=== PATIENT | female | born 1950 | race Caucasian/White ===

== ENCOUNTER → 2016-11-18 | Outpatient (CLI) | payer OTHER | LOC: FIMAGING 09:24 | PROVIDERS: ATTEND Internal Medicine | DX: Z12.31 Encounter for screening mammogram for malignant neoplasm of breast (principal) | CPT/HCPCS: G0202 ==

== ENCOUNTER → 2016-12-10 | Outpatient (CLI) | payer OTHER | LOC: FIMAGING 10:06 | PROVIDERS: ATTEND Internal Medicine | DX: R13.10 Dysphagia, unspecified (principal); R53.83 Other fatigue; R63.4 Abnormal weight loss; R05 Cough ==

== ENCOUNTER 2017-11-22 13:04 | Observation (INO) | payer OTHER ==
[2017-11-22] MEDS ORDERED: NS 500 ML IV ONE (13:47)
[2017-11-22 13:56] LABS: PLATELET COUNT 222 10^3/uL (150-400)
[2017-11-22 14:04] LABS: INR 1.04 (0.83-1.16); PROTIME(PATIENT) 13.8 SEC (12.0-15.0)
[2017-11-22] MEDS ORDERED: ONDANSETRON DISINTEGRATING 4 MG TAB PO PRN (14:41)
[2017-11-22] MEDS ORDERED: IBUPROFEN 200 MG TAB PO PRN (14:41)
[2017-11-22] MEDS ORDERED: ONDANSETRON 4 MG/2 ML VIAL IVP PRN (14:41)
[2017-11-22] MEDS ORDERED: ACETAMINOPHEN 325 MG TAB PO PRN (14:41)
--- NOTE | 2017-11-22 15:06 | PDGENHP ---
History and Physical - Chief Complaint Acute lymphangitic streaking - History of Present Illness Primary care provider: Dr. Gale Lambert Primary general surgeon: Dr. Reese Carvalho HPI: 67-year-old female presents with acute lymphangitic streaking characterized as clearly delineated erythema extending from the right elbow into the right axilla with associated soft tissue edema, mild induration over the dorsal aspect of her right elbow with associated pruritus and warmth, no tenderness. The onset of symptoms was on the morning of presentation, preceded by what appeared to be 2 insect bites located over the dorsal aspect of the right elbow occurring on the day prior. The patient did not identify the bugs which bit her. She reports that approximately 6 weeks ago she believes that she was bit by black spider on her left upper extremity, which also resulted in a shorter segment of lymphangitic streaking. She started Keflex at that time, and the lymphangitic streaking was alleviated. She did not actually see the spider which bit her, but she believes that she has seen black widows in her locale. She otherwise denies any fevers chills or night sweats. She also has 2 well-circumscribed areas of erythematous induration located on the posterior lower extremities. History Information - Allergies/Home Medication List Allergies/Adverse Reactions: fentanyl Allergy (Severe, Verified 11/22/17 13:07) Other-Enter Comments Iodinated Contrast- Oral and IV Dye [IV Dye, Iodine Containing Contrast ] Allergy (Severe, Verified 11/22/17 13:07) Anaphylaxis iodine [Iodine] Allergy (Severe, Verified 11/22/17 13:07) Hives zinc [Zinc] Allergy (Intermediate, Verified 11/22/17 13:07) Flushing Creams Allergy (Uncoded 11/22/17 14:44) Home Medications: Calcium Carbonate [Oyster Shell Calcium 500 mg (OTC)] 500 mg PO DAILY 10/08/12 [ Last Taken 11/22/17] Ferrous Sulfate [Ferrous Sulf 325 MG (*)] 325 mg PO DAILY 11/22/17 [Last Taken 11/22/17] Multivitamins [Multivitamin (*)] 1 each PO DAILY 11/22/17 [Last Taken 11/22/17] Primidone [Mysoline 50mg (RX)] 25 mg PO DAILY 11/22/17 [Last Taken 11/22/17] Primidone [Mysoline 50mg (RX)] 50 mg PO HS 11/22/17 [Last Taken 11/21/17] I have personally reviewed and updated: family history, medical history, social history, surgical history - Past Medical History Additional medical history: Melanoma. Recurrent UTIs. Possible migraines. Closed head injury. Frequent, pervasive bug bites - Surgical History Additional surgical history: Hysterectomy. Appendectomy 2013. 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 [employer] Review of Systems Review of Systems: ROS: 10pt was reviewed & negative except for what was stated in HPI & below Skin: Reports: other (Erythema, swelling) Hematologic/Lymphatic: Reports: other (Lymphangitic streaking right upper extremity) Physical Exam Physical Exam: Temp Pulse Resp BP Pulse Ox 36.7 C 55 L 18 130/72 H 97 11/22/17 14:23 11/22/17 14:34 11/22/17 14:34 11/22/17 14:34 11/22/17 14:34 Constitutional: no apparent distress, appears nourished, not in pain Eyes: PERRL, anicteric sclera, EOMI Ears, Nose, Mouth, Throat: moist mucous membranes, hearing normal, ears appear normal, no oral mucosal ulcers Cardiovascular: regular rate and rhythym, no murmur, rub, or gallop, No edema Respiratory: no respiratory distress, no rales or rhonchi, clear to auscultation Gastrointestinal: normoactive bowel sounds, soft, non-tender abdomen, no palpable masses Skin: induration (Dorsal right upper extremity, posterior bilateral lower extremities, no tenderness, well-circumscribed) Musculoskeletal: other (Full range of motion right elbow, right wrist, right shoulder without any pain) Neurologic: AAOx3, sensation intact bilaterally, No weakness Psychiatric: interacting appropriately, not anxious, not encephalopathic, thought process linear Lymph, Heme, Immunologic: lymphangitic streaking (Right upper extremity proximal arm), No lymphadenopathy (None in right axilla) Lab Data & Imaging Review 11/22/17 13:30 11/22/17 13:30 WBC 5.71 10^3/uL (3.80-9.50) 11/22/17 13:30 RBC 4.40 10^6/uL (4.18-5.33) 11/22/17 13:30 Hgb 12.9 g/dL (12.6-16.3) 11/22/17 13:30 Hct 38.9 % (38.0-47.0) 11/22/17 13:30 MCV 88.4 fL (81.5-99.8) 11/22/17 13:30 MCH 29.3 pg (27.9-34.1) 11/22/17 13:30 MCHC 33.2 g/dL (32.4-36.7) 11/22/17 13:30 RDW 14.6 % (11.5-15.2) 11/22/17 13:30 Plt Count 222 10^3/uL (150-400) 11/22/17 13:30 MPV 10.8 fL (8.7-11.7) 11/22/17 13:30 Neut % (Auto) 67.5 % (39.3-74.2) 11/22/17 13:30 Lymph % (Auto) 24.7 % (15.0-45.0) 11/22/17 13:30 [place] % (Auto) 4.6 % (4.5-13.0) 11/22/17 13:30 Eos % (Auto) 1.9 % (0.6-7.6) 11/22/17 13:30 Baso % (Auto) 0.9 % (0.3-1.7) 11/22/17 13:30 Nucleat RBC Rel Count 0.0 % (0.0-0.2) 11/22/17 13:30 Absolute Neuts (auto) 3.86 10^3/uL (1.70-6.50) 11/22/17 13:30 Absolute Lymphs (auto) 1.41 10^3/uL (1.00-3.00) 11/22/17 13:30 Absolute Monos (auto) 0.26 10^3/uL (0.30-0.80) L 11/22/17 13:30 Absolute Eos (auto) 0.11 10^3/uL (0.03-0.40) 11/22/17 13:30 Absolute Basos (auto) 0.05 10^3/uL (0.02-0.10) 11/22/17 13:30 Absolute Nucleated RBC 0.00 10^3/uL (0-0.01) 11/22/17 13:30 Immature Gran % 0.4 % (0.0-1.1) 11/22/17 13:30 Immature Gran # 0.02 10^3/uL (0.00-0.10) 11/22/17 13:30 PT 13.8 SEC (12.0-15.0) 11/22/17 13:30 INR 1.04 (0.83-1.16) 11/22/17 13:30 APTT 28.1 SEC (23.0-38.0) 11/22/17 13:30 VBG Lactic Acid 1.2 mmol/L (0.7-2.1) 11/22/17 13:55 Sodium 141 mEq/L (135-145) 11/22/17 13:30 Potassium 4.3 mEq/L (3.3-5.0) 11/22/17 13:30 Chloride 104 mEq/L (97-110) 11/22/17 13:30 Carbon Dioxide 28 mEq/l (22-31) 11/22/17 13:30 Anion Gap 9 mEq/L (8-16) 11/22/17 13:30 BUN 18 mg/dL (7-23) 11/22/17 13:30 Creatinine 1.0 mg/dL (0.6-1.0) 11/22/17 13:30 Estimated GFR 55 11/22/17 13:30 Glucose 158 mg/dL (70-100) H 11/22/17 13:30 Calcium 9.8 mg/dL (8.5-10.4) 11/22/17 13:30 Total Bilirubin 0.4 mg/dL (0.1-1.4) 11/22/17 13:30 Assessment & Plan Assessment: 67-year-old female presents with acute cellulitis and lymphangitic streaking Plan: 1. Cellulitis and lymphangitic streaking. Acute, new problem this provider, further workup indicated. Located in the right upper extremity, resulting in a high risk infection requiring IV antibiotics given the potential for bacteremia -reviewed outside records including 10/13/2017 emergency department for by Dr. Damari Lackey, she saw the patient for cellulitis on the left upper extremity, prescribed her 2 weeks of oral Keflex 500 mg 4 times daily -blood culture sent, currently pending -repeat white blood cell count in a.m. -discussed with Dr. Sabiha Ramirez outside emergency department, she reports to me the patient has received 1 dose of IV Ancef, continue 2 g Q 8 hr and reassess for transition for oral antibiotic tomorrow -recommend adjusting to Keflex tomorrow if lymphangitic streaking improving -discussed with patient and her , she would like to follow up with outpatient infectious disease to reassess the area of streaking as well as discuss potential ways of reducing bug bites which are likely the underlying nidus of infection Diet. Regular Prophylaxis. Moderate risk patient, Lovenox for Code. Full Disposition. Anticipated discharge is 11/23/2017, pending improvement of condition outlined above.
[2017-11-22] MEDS ORDERED: DIPHENHYDRAMINE CREAM TP PRN (20:10)
[2017-11-22] MEDS ORDERED: HYDROCORTISONE 1% CREAM TP PRN (20:10)
[2017-11-22] MEDS ORDERED: diphenhydrAMINE 25 MG CAP PO PRN (20:10)
[2017-11-22] MEDS ORDERED: PRIMIDONE 50 MG TAB PO SCH (21:00)
[2017-11-22] MEDS: ceFAZolin 2 GM/DEXTROSE 100 ML IV SCH (21:16)
--- NOTE | 2017-11-23 00:14 | EDPHY ---
H & P Time Seen by Provider: 11/22/17 13:30 HPI/ROS: CHIEF COMPLAINT: Bug bite with infection HISTORY OF PRESENT ILLNESS: 67-year-old female states she was bitten on the right elbow yesterday. She does not know what type of bug this was. She was in the house. She felt like she received 2 bites. This morning the area was somewhat itchy and she noticed redness and swelling over the ulnar aspect of the elbow. Today after lunch the patient noticed that she had lymphangitic spread with a red luis fernando streaking up to the axilla of the right arm. She reports some generalized nausea and not feeling well but no fever. No fever, chills, chest pain, shortness of breath, palpitations, vomiting, diarrhea, urinary complaints, headache, lightheadedness. REVIEW OF SYSTEMS: Aside from elements discussed in the HPI, a comprehensive 10-point review of systems was reviewed and is negative. PAST MEDICAL HISTORY: Prior history of black spider bite. SOCIAL HISTORY: Works as a veterinary technician. Denies IV drug use, or illicit drug use. VITAL SIGNS: see nurse's notes. GENERAL: Well-developed, well-nourished, in no acute distress. Pleasant and conversant. HEENT: Normal, no discharge or icterus, moist mucous membranes. Neck: supple, FROM. LUNGS: Clear to auscultation bilaterally, no wheezes, rhonchi or rales. CARDIAC: Regular rate and rhythm, no rubs, murmurs or gallops. ABDOMEN: Soft, nontender, nondistended, bowel sounds normal. BACK: No CVA tenderness. No vertebral tenderness. EXTREMITIES: Right upper extremity: 8 cm x 4 cm erythematous, slightly swollen , slightly warm to the touch area just distal to the elbow on the ulnar aspect of the forearm. Within this area there are 2 small punctate bite kimble. No fluctuance. Patient has erythematous streaking extending medially and into the antecubital fossa, along the medial surface of the humerus, and into the axilla. NEURO: Alert and oriented, grossly nonfocal. SKIN: Warm and dry, no rash. Smoking Status: Never smoked Constitutional: Initial Vital Signs Temperature (C) 36.4 C 11/22/17 13:07 Heart Rate 67 11/22/17 13:07 Respiratory Rate 17 11/22/17 13:07 Blood Pressure 107/55 L 11/22/17 13:07 O2 Sat (%) 97 11/22/17 13:07 O2 Delivery Mode Room Air Allergies/Adverse Reactions: fentanyl Allergy (Severe, Verified 11/22/17 13:07) Other-Enter Comments Iodinated Contrast- Oral and IV Dye [IV Dye, Iodine Containing Contrast ] Allergy (Severe, Verified 11/22/17 13:07) Anaphylaxis iodine [Iodine] Allergy (Severe, Verified 11/22/17 13:07) Hives zinc [Zinc] Allergy (Intermediate, Verified 11/22/17 13:07) Flushing Creams Allergy (Uncoded 11/22/17 14:44) Home Medications: Medication Instructions Recorded Calcium Carbonate [Oyster Shell 500 mg PO DAILY 10/08/12 Calcium 500 mg (OTC)] Ferrous Sulfate [Ferrous Sulf 325 325 mg PO DAILY 11/22/17 MG (*)] Multivitamins [Multivitamin (*)] 1 each PO DAILY 11/22/17 Primidone [Mysoline 50mg (RX)] 25 mg PO DAILY 11/22/17 Primidone [Mysoline 50mg (RX)] 50 mg PO HS 11/22/17 Medical Decision Making ED Course/Re-evaluation: 67-year-old female presenting with cellulitis related to an insect bite with lymphangitic spread. She is afebrile. There is no signs of purulence. I do not suspect MRSA at this time. IV was placed. Patient's labs demonstrated normal white count, normal lactic acid, normal chemistries. She received cefazolin 1 g. Course was discussed with Dr. Toby Guidry. Patient will be admitted to the hospitalist service for 24 hr observation and ongoing the antibiotics. Differential Diagnosis: Differential diagnoses for the patient's symptom complex was considered including but not limited to MSSA, cellulitis, lymphangitic spread, MRSA. - Data Points Laboratory Results: Laboratory Results 11/22/17 13:30 11/22/17 13:30 11/22/17 11/22/17 11/22/17 13:55 13:30 13:30 WBC RBC Hgb Hct MCV MCH MCHC RDW Plt Count MPV Neut % (Auto) Lymph % (Auto) [place] % (Auto) Eos % (Auto) Baso % (Auto) Nucleat RBC Rel Count Absolute Neuts (auto) Absolute Lymphs (auto) Absolute Monos (auto) Absolute Eos (auto) Absolute Basos (auto) Absolute Nucleated RBC Immature Gran % Immature Gran # PT 13.8 SEC SEC (12.0-15.0) INR 1.04 (0.83-1.16) APTT 28.1 SEC SEC (23.0-38.0) VBG Lactic Acid 1.2 mmol/L mmol/L (0.7-2.1) Sodium 141 mEq/L mEq/L (135-145) Potassium 4.3 mEq/L mEq/L (3.3-5.0) Chloride 104 mEq/L mEq/L (97-110) Carbon Dioxide 28 mEq/l mEq/l (22-31) Anion Gap 9 mEq/L mEq/L (8-16) BUN 18 mg/dL mg/dL (7-23) Creatinine 1.0 mg/dL mg/dL (0.6-1.0) Estimated GFR 55 Glucose 158 mg/dL H mg/dL (70-100) Calcium 9.8 mg/dL mg/dL (8.5-10.4) Total Bilirubin 0.4 mg/dL mg/dL (0.1-1.4) 11/22/17 13:30 WBC 5.71 10^3/uL 10^3/uL (3.80-9.50) RBC 4.40 10^6/uL 10^6/uL (4.18-5.33) Hgb 12.9 g/dL g/dL (12.6-16.3) Hct 38.9 % % (38.0-47.0) MCV 88.4 fL fL (81.5-99.8) MCH 29.3 pg pg (27.9-34.1) MCHC 33.2 g/dL g/dL (32.4-36.7) RDW 14.6 % % (11.5-15.2) Plt Count 222 10^3/uL 10^3/uL (150-400) MPV 10.8 fL fL (8.7-11.7) Neut % (Auto) 67.5 % % (39.3-74.2) Lymph % (Auto) 24.7 % % (15.0-45.0) [place] % (Auto) 4.6 % % (4.5-13.0) Eos % (Auto) 1.9 % % (0.6-7.6) Baso % (Auto) 0.9 % % (0.3-1.7) Nucleat RBC Rel Count 0.0 % % (0.0-0.2) Absolute Neuts (auto) 3.86 10^3/uL 10^3/uL (1.70-6.50) Absolute Lymphs (auto) 1.41 10^3/uL 10^3/uL (1.00-3.00) Absolute Monos (auto) 0.26 10^3/uL L 10^3/uL (0.30-0.80) Absolute Eos (auto) 0.11 10^3/uL 10^3/uL (0.03-0.40) Absolute Basos (auto) 0.05 10^3/uL 10^3/uL (0.02-0.10) Absolute Nucleated RBC 0.00 10^3/uL 10^3/uL (0-0.01) Immature Gran % 0.4 % % (0.0-1.1) Immature Gran # 0.02 10^3/uL 10^3/uL (0.00-0.10) PT INR APTT VBG Lactic Acid Sodium Potassium Chloride Carbon Dioxide Anion Gap BUN Creatinine Estimated GFR Glucose Calcium Total Bilirubin Medications Given: Diphenhydramine HCl (Benadryl) 50 mg PO Q6HRS PRN PRN Reason: Itching Stop: 05/21/18 20:09 Last Admin: 11/22/17 20:41 Dose: 50 mg Cefazolin Sodium/Dextrose (Ancef 2 Gm) 100 mls @ 200 mls/hr IV Q8HRS AMANDA PRN Reason: Protocol Stop: 12/22/17 21:59 Last Admin: 11/22/17 21:16 Dose: 100 mls Primidone (Mysoline) 50 mg PO HS AMANDA Stop: 05/21/18 20:59 Last Admin: 11/22/17 21:16 Dose: 50 mg Discontinued Medications Sodium Chloride (Ns) 500 mls @ 1,000 mls/hr IV EDNOW ONE PRN Reason: Protocol Stop: 11/22/17 14:16 Last Admin: 11/22/17 13:57 Dose: 500 mls Cefazolin Sodium/Dextrose (Ancef 1 Gm (Premix)) 50 mls @ 200 mls/hr IV EDNOW ONE PRN Reason: Protocol Stop: 11/22/17 14:23 Last Admin: 11/22/17 14:17 Dose: 50 mls Departure - Departure Disposition: [facility] In[facility] Acute Clinical Impression: lymphangitic spread Cellulitis Qualifiers: Site of cellulitis: extremity Site of cellulitis of extremity: upper extremity Laterality: right Qualified Code(s): L03.113 - Cellulitis of right upper limb Condition: Good
[2017-11-23] MEDS: ceFAZolin 2 GM/DEXTROSE 100 ML IV SCH ×2 (05:08→13:21)
[2017-11-23 06:08] LABS: PLATELET COUNT 218 10^3/uL (150-400)
[2017-11-23] MEDS ORDERED: PRIMIDONE 50 MG TAB PO SCH (09:00)
[2017-11-23] MEDS ORDERED: CALCIUM CARBONATE 500 MG TAB PO SCH (09:00)
[2017-11-23] MEDS ORDERED: MULTIVITAMINS 1 EACH TAB PO SCH (09:00)
[2017-11-23] MEDS ORDERED: FERROUS SULFATE 325 MG TAB PO SCH (09:00)
[2017-11-23] MEDS ORDERED: ENOXAPARIN 40 MG/0.4 ML SYR SC SCH (09:00)
--- NOTE | 2017-11-23 10:28 | ASMTCMCOM ---
CM Note CM Note Notes: Pt admitted for streaking of bug bites. 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 Pt will dc home w/support of when medically stable, CM available for any changes. DC Plan: Independent Date Signed: 11/23/2017 10:27 AM Electronically Signed By:Rocio Sebastian RN
[2017-11-23 12:07] VITALS: BP 110/63
--- NOTE | 2017-11-23 13:12 | HOSPPROG ---
Hospitalist Progress Note Assessment/Plan: 67-year-old female presents with acute cellulitis and lymphangitic streaking. Today is my first encounter w the patient, chart reviewed. *right elbow area cellulitis secondary from mosquito bites -had some lymphangitic streaking, now has since resolved -dc home on Keflex + Pepcid -it appears like a localized reaction in addition *underweight -BMI of 17.6 -patient is very athletic *plan: dc home w close f/u w her PCP Subjective: Talya has no complaints, feeling better. Objective: Vital Signs Temp Pulse Resp BP Pulse Ox 36.6 C 57 L 19 110/63 95 11/23/17 12:05 11/23/17 12:05 11/23/17 12:05 11/23/17 12:05 11/23/17 12:05 Laboratory Results 11/23/17 05:09 11/23/17 05:09 11/22/17 11/23/17 11/24/17 05:59 05:59 05:59 Intake Total 1170 Balance 1170 PT 13.8 SEC (12.0-15.0) 11/22/17 13:30 INR 1.04 (0.83-1.16) 11/22/17 13:30 - Physical Exam Constitutional: no apparent distress, appears nourished, other (slender) Eyes: PERRL Ears, Nose, Mouth, Throat: hearing normal Cardiovascular: regular rate and rhythym Respiratory: no respiratory distress Skin: warm, other (right elbow area with some warmth and swelling, edges marked and has decreased ) Musculoskeletal: full muscle strength Neurologic: AAOx3 ICD10 Worksheet Patient Problems: Problems Problem Status Onset Cellulitis Acute
[2017-11-23] MEDS ORDERED: FAMOTIDINE 20 MG TAB PO SCH (14:15)
--- NOTE | 2017-11-23 15:22 | GDS ---
[f rep st] DISCHARGE SUMMARY DISCHARGE DIAGNOSES: 1. Right elbow cellulitis secondary to bug bites with associated lymphangitis. 2. Underweight with a body mass index of 17.6. HISTORY: Briefly, the patient is a 67-year-old female. She presented with cellulitis to her right arm area with associated lymphatic streaking. The patient shares with me that she had 2 bug bites there that were itching and tender. She was treated with IV antibiotics and is markedly improved. HOSPITAL COURSE: 1. Right elbow area cellulitis secondary to mosquito bites. She has some lymphatic streaking that has now since resolved. Will discharge her home on Keflex and recommend Pepcid and Benadryl p.r.n. 2. Underweight. She has a body mass index of 17.6. The patient said she is very athletic. DISCHARGE CONDITION: Stable. Blood pressure is 110/63, heart rate 57, respiratory rate 19, O2 saturation on room air 95%, temperature 36.6 Celsius. DISCHARGE MEDICATIONS: Please see the EMR. DISCHARGE INSTRUCTIONS: 1. To elevate her arm 3-5 times daily above her heart. 2. If she develops any fever, chills, worsening redness, to return to the ER. /[id number]/MODL MTDD
== END 2017-11-23 15:29 | disposition home or self-care (01) ==
LOC: F3E 15:46
PROVIDERS: ADMIT Internal Medicine; ATTEND Internal Medicine
DX: L03.113 Cellulitis of right upper limb (principal); R63.6 Underweight; Z68.1 Body mass index [BMI] 19.9 or less, adult
CPT/HCPCS: 96372; 96374; 96376; 99285; G0378; J0690; J1650

== ENCOUNTER → 2017-12-01 | Outpatient (CLI) | payer OTHER | LOC: FIMAGING 13:52 | PROVIDERS: ATTEND Internal Medicine | DX: Z12.31 Encounter for screening mammogram for malignant neoplasm of breast (principal) ==

== ENCOUNTER → 2018-07-20 | Outpatient (CLI) | payer OTHER | LOC: BMCIMAGING 10:34 | PROVIDERS: ATTEND Internal Medicine | DX: N63.20 Unspecified lump in the left breast, unspecified quadrant (principal); Z85.820 Personal history of malignant melanoma of skin ==